=== PATIENT | male | born 1965 | race Hispanic/Latino ===

== ENCOUNTER 2024-11-10 15:52 | Observation (INO) ==
[2024-11-10] MEDS: ASPIRIN 81 MG TAB.CHEW PO ONE (16:32)
[2024-11-10] MEDS: NITROGLYCERIN 1 GM OINT...G. TD ONE (16:33)
--- NOTE | 2024-11-10 16:38 | Emergency Department Note ---
HPI - Chest Pain General Chief Complaint: Chest Pain Stated Complaint: CHEST PAIN,SOB Time Seen by Provider: 11/10/24 16:38 Source: patient Mode of arrival: walk-in Limitations: no limitations History of Present Illness HPI narrative: This is a 59 year old male patient that presents to the ER with c/o substenal chest pain that comes and goes. patient denies any SOB, abdominal pain, back pain, fever, chills, numbness, tingling, weakness or N/V/D MD complaint: Reports chest pain Onset (ago): hour(s) (3) Timing of current episode: Reports episodic Onset: Reports during rest Pain location: Reports substernal Pain radiation: Reports none Severity: mild Quality: Reports tightness Relieving factors: Reports nothing Exacerbating factors: Reports nothing Treatment prior to arrival: Reports aspirin (81mg [employer]IE[employer] to ER) Risk Factors Coronary artery disease risk factors: Reports hypertension Thoracic aortic dissection risk factors: Reports none Pulmonary embolism risk factors: Reports none Related Data Allergies Allergy/AdvReac Type Severity Reaction Status Date / Time Penicillins Allergy Verified 11/10/24 16:27 Review of Systems Status of ROS 10 or more systems reviewed and unremark able except as noted in history and below Constitutional Denies: fever, chills, change in weight, fatigue or malaise Eyes Denies: change in vision, blurry vision, blind spots or light sensitivity Ears, nose, mouth, and throat Denies: throat pain, neck pain, throat swelling, difficulty swallowing or hoarseness Cardiovascular Reports: chest pain; Denies: palpitations, edema, swelling of feet/ankles or lightheadedness Respiratory Denies: shortness of breath, cough, wheezing, stridor, pain on inspiration or change in phlegm color Gastrointestinal Denies: abdominal pain, nausea, vomiting, coffee grounds in vomit, heartburn or diarrhea Genitourinary Denies: painful urination, urinary frequency, urinary urgency, blood in urine or genital pain Musculoskeletal Denies: back pain, neck pain, extremity pain, extremity swelling, joint pain or limited range of motion Integumentary/Breast Denies: rash, itching, redness, skin pain, skin tenderness or skin swelling Neurological Denies: headache, numbness in extremities, weakness in extrem ities, lack of coordination or dizziness Psychiatric Denies: anxiety, mood swings, panic attacks, change in sleep pattern or hopelessness Endocrine Denies: excessive urination, excessive thirst, fatigue, cold intolerance or excessive sweating Hematologic/Lymphatic Denies: easy bruising, easy bleeding or enlarged lymph nodes Allergic/Immunologic Denies: hives, throat swelling, tongue swelling or facial swelling Exam Constitutional: normal general appearance and no apparent distress Vital Signs - 24 hr 11/10/24 15:55 11/10/24 15:55 11/10/24 16:33 Temperature 98.8 F Pulse Rate 77 Respiratory Rate 16 Blood Pressure 128/72 133/71 Pulse Oximetry 99 99 Oxygen Delivery Me thod Room Air Room Air HENMT: normocephalic, head/scalp atraumatic, hearing grossly normal bilaterally, external ears normal, nasal mucous membranes normal, external nose normal, oral mucous membranes normal and oropharynx normal Eyes: PERRL, EOMs intact bilaterally, conjunctivae normal and no scleral icterus Neck/C-Spine: visual inspection normal and trachea midline Lymph: no lymphadenopathy noted Chest: inspection of chest normal Respiratory: breath sounds equal bilaterally, normal respiratory effort, clear to auscultation bilaterally, no wheezes, no rales, no retractions, no use of accessory muscles and chest percussion normal Cardiovascular: normal heart rate noted, regular rhythm noted, no gallop, no rub, no murmur, no JVD, no clicks, peripheral pulses 2+ throughout and no additional abnormal heart sounds Gastrointestinal: abdomen normal to inspection, abdomen soft to palpation, nontender to palpation, nontender to percussion, nondistended, normoactive bowel sounds, no hepatosplenomegaly, no masses, no pulsatile mass, no ascites and no hernia Genitourinary: no CVA tenderness Back/Pelvis: spine normal to inspection Extremities: normal to inspection, normal to palpation, no tenderness, full ROM, no joint enlargement and no deformity Neurology: no movement abnormality noted, no focal motor deficit noted, no sensory deficits noted, gait normal, speech normal, coordination normal, no pronator drift noted, no fasciculations noted and GCS normal Psychiatry: mental status grossly normal, oriented x3, thought process normal, cooperative and affect normal Skin: skin color normal Course Course Hospital Course: 1706: due to patients ongoing chest pain, risk factors and heart score of 7 will admit patient to the hospital for further evaluation and treatment, VSS, no s/s of acute distress noted Vital Signs Vital signs: Vital Signs Temperature 98.8 F 11/10/24 15:55 Pulse Rate 77 11/10/24 15:55 Respiratory Rate 16 11/10/24 15:55 Blood Pressure 128/72 11/10/24 15:55 Pulse Oximetry 99 11/10/24 15:55 Oxygen Delivery Method Room Air 11/10/24 15:55 Temperature 98.8 F 11/10/24 15:55 Pulse Rate 77 11/10/24 15:55 Respiratory Rate 16 11/10/24 15:55 Blood Pressure 133/71 11/10/24 16:33 Pulse Oximetry 99 11/10/24 15:55 Oxygen Delivery Method Room Air 11/10/24 15:55 MDM - Chest Pain Differential Diagnosis Differential diagnosis: Likely stable angina Medical Records Data Attestation: I reviewed the patient's medical records. Lab Data Attestation: I reviewed the patient's lab results. Labs: Lab Results 11/10/24 Range/Units 16:10 WBC 5.6 (3.7-9.6) K/uL RBC 4.1 L (4.40-5.80) M/uL Hgb 13.4 L (14.0-17.4) gm/dL Hct 38.9 L (41.3-50.1) % MCV 95.7 (81.9-96.5) fl MCH 32.9 (27.6-33.7) pg MCHC 34.4 (33.0-35.7) g/dl RDW 13.9 (11.0-14.8) % Plt Count 97 L (142-355) K/uL MPV 10.3 (6.0-10.4) fl Gran % 51.3 (49.1-73.1) % Lymph % (Auto) 30.2 (17.6-39.05) % [place] % (Auto) 9.7 (4.5-10.7) % Eos % (Auto) 8.1 H (0.0-4.0) % Baso % (Auto) 0.7 (0.0-1.3) Lymph # (Auto) 1.7 (0.8-2.9) [place] # (Auto) 0.5 (0.2-0.8) Eos # (Auto) 0.5 H (0.0-0.3) Baso # (Auto) 0.0 (0.0-0.1) Absolute Gran (auto) 2.9 (2.0-6.2) Sodium 137 (136-145) mmol/L Potassium 3.6 (3.6-5.2) mmol/L Chloride 100.0 (98-107) mmol/L Carbon Dioxide 32 (21-32) mmol/L Anion Gap 5.0 (4-14) mEq/L BUN 7 (7-18) mg/dL Creatinine 0.8 (0.6-1.3) mg/dL Estimated GFR 102.0 (>59.9) Glucose 76 (70-110) mg/dL Calcium 8.7 (8.5-10.1) mg/dL Total Bilirubin 1.25 H (0.0-1.0) mg/dL AST 41 H (15-37) U/L ALT 48 (30-65) U/L Alkaline Phosphatase 124 (50-136) U/L Troponin I High Sens 6.40 (4.0-60.4) ng/L Total Protein 7.1 (6.4-8.2) g/dL Albumin 3.4 (3.4-5.0) g/dL Imaging Data Imaging ordered: Chest x-ray My impression: CXR: negative ECG Data Attestation: I have reviewed the pertinent ECG results. Discharge Plan Discharge Patient Disposition: Admitted As Observation Condition: Stable Chief Complaint: Chest Pain Clinical Impression: Chest pain Print Language: Finnish Referrals: YANNA SWANSON [Primary Care Provider] - Time of Disposition: 17:12 [facility] Medical History (Updated 11/10/24 @ 16:29 by Apple Giordano RN) HTN (hypertension) GERD (gastroesophageal reflux disease) Surgical History (Updated 11/10/24 @ 16:29 by Apple Giordano RN) H/O left inguinal hernia repair Social History Smoking status: current some day smoker
[2024-11-10 16:53] LABS: Basophils%(Percent) Auto 0.7 (0.0-1.3); Eosinophils#(Absolute)Auto 0.5 (0.0-0.3); Eosinophils%(Percent) Auto 8.1 % (0.0-4.0); Granulocytes % - Auto 51.3 % (49.1-73.1); Granulocytes#(Absolute)- Auto 2.9 (2.0-6.2); Hematocrit 38.9 % (41.3-50.1); Mean Corpuscular Volume 95.7 fl (81.9-96.5); Monocytes #(Absolute)- Auto 0.5 (0.2-0.8); Monocytes %(Percent)- Auto 9.7 % (4.5-10.7); Platelet Count 97 K/uL (142-355); White Blood Count 5.6 K/uL (3.7-9.6)
[2024-11-10 16:58] LABS: Potassium 3.6 mmol/L (3.6-5.2)
[2024-11-10] MEDS ORDERED: MORPHINE SULFATE 2 MG/ML CARTRIDGE IV PRN (18:22)
[2024-11-10] MEDS: NITROGLYCERIN 1 GM OINT...G. TD SCH (22:36)
[2024-11-11 04:42] LABS: Eosinophils#(Absolute)Auto 0.6 (0.0-0.3); Eosinophils%(Percent) Auto 12.3 % (0.0-4.0); Granulocytes#(Absolute)- Auto 1.9 (2.0-6.2); Monocytes #(Absolute)- Auto 0.4 (0.2-0.8); White Blood Count 4.6 K/uL (3.7-9.6)
[2024-11-11 04:44] LABS: Basophils%(Percent) Auto 0.9 (0.0-1.3); Granulocytes % - Auto 42.3 % (49.1-73.1); Hematocrit 36.8 % (41.3-50.1); Mean Corpuscular Volume 98.2 fl (81.9-96.5); Monocytes %(Percent)- Auto 9.2 % (4.5-10.7); Platelet Count 61 K/uL (142-355)
[2024-11-11 05:02] LABS: Potassium 3.4 mmol/L (3.6-5.2)
[2024-11-11 05:10] LABS: INR 2.18
[2024-11-11 08:23] VITALS: RESP 19
[2024-11-11] MEDS: ASPIRIN 81 MG TAB.CHEW PO SCH (10:11)
--- NOTE | 2024-11-11 10:52 | Short Stay Summary ---
H&P: HPI History of Present Illness Chief complaint: Chest Pain Narrative: This is a 59 year old male patient that presents to the ER with c/o substernal chest pain that comes and goes. Patient denies any SOB, abdominal pain, back pain, fever, chills, numbness, tingling, weakness or N/V/D. Admitted patient to med/surg floor for further observation and treatment. Review of Systems Status of ROS 10 or more systems reviewed and unremark able except as noted in history and below Constitutional Denies: fever, chills, change in weight, fatigue or malaise Eyes Denies: change in vision, blurry vision, blind spots or light sensitivity Ears, nose, mouth, and throat Denies: throat pain, neck pain, throat swelling, difficulty swallowing or hoarseness Cardiovascular Reports: chest pain; Denies: palpitations, edema, swelling of feet/ankles, lightheadedness or shortness of breath with exertion Respiratory Denies: shortness of breath, cough, wheezing, stridor, pain on inspiration or change in phlegm color Gastrointestinal Denies: abdominal pain, nausea, vomiting, coffee grounds in vomit, heartburn, diarrhea or difficulty swallowing Genitourinary Denies: painful urination, urinary frequency, urinary urgency, blood in urine or genital pain Musculoskeletal Denies: back pain, neck pain, extremity pain, extremity swelling, joint pain or limited range of motion Integumentary/Breast Denies: rash, itching, redness, skin pain, skin tenderness or skin swelling Neurological Denies: headache, numbness in extremities, weakness in extremities, lack of coordination or dizziness Psychiatric Denies: anxiety, mood swings, panic attacks, change in sleep pattern or hopelessness Endocrine Denies: excessive urination, excessive thirst, fatigue, cold intolerance or excessive sweating Hematologic/Lymphatic Denies: easy bruising, easy bleeding or enlarged lymph nodes Allergic/Immunologic Denies: hives, throat swelling, tongue swelling, facial swelling or wheezing PFSH PFS Medical History Hyperbilirubinemia CAD (coronary artery disease) HTN (hypertension) GERD (gastroesophageal reflux disease) Surgical History H/O left inguinal hernia repair Social History Smoking status: current some day smoker Problems where you live: no known problems Highest level of school completed/degree received: high school Meds Home Medications and Allergies Home Medications Medication Instructions Recorded Confirmed Type aspirin 81 mg tablet,delayed 81 mg PO DAILY cad #30 tabs 11/11/24 Rx release famotidine 40 mg tablet (Pepcid) 40 mg PO BID gerd/etoh gastritis 11/11/24 Rx #60 tabs lisinopril 2.5 mg tablet 2.5 mg PO DAILY htn #30 tabs 11/11/24 Rx metoprolol tartrate 25 mg tablet 25 mg PO DAILY htn #30 tabs 11/11/24 Rx Allergies Allergy/AdvReac Type Severity Reaction Status Date / Time Penicillins Allergy Verified 11/10/24 18:26 Exam Exam: Patient resting in jimenez's position with family member at bedside upon entering room for exam. Constitutional: normal general appearance, no apparent distress, average body habitus, no limitations and alert Vital Signs - 24 hr 11/10/24 15:55 11/10/24 15:55 11/10/24 16:30 Temperature 98.8 F Pulse Rate 77 75 Pulse Rate [Left B rachial] Pulse Rate [Right Brachial] Respiratory Rate 16 15 Blood Pressure 128/72 133/71 Blood Pressure [Le ft Arm] Blood Pressure [Ri ght Arm] Pulse Oximetry 99 99 98 Oxygen Delivery Me thod Room Air Room Air Room Air 11/10/24 16:33 11/10/24 17:30 11/10/24 18:00 Temperature Pulse Rate 69 70 Pulse Rate [Left B rachial] Pulse Rate [Right Brachial] Respiratory Rate 14 15 Blood Pressure 133/71 125/74 129/74 Blood Pressure [Le ft Arm] Blood Pressure [Ri ght Arm] Pulse Oximetry 97 97 Oxygen Delivery Mt thod Room Air Room Air 11/10/24 18:05 11/10/24 18:07 11/10/24 18:22 Temperature 98.8 F 98.4 F Pulse Rate 70 Pulse Rate [Left B rachial] Pulse Rate [Right Brachial] 63 Respiratory Rate 15 14 Blood Pressure 125/74 125/74 Blood Pressure [Le ft Arm] Blood Pressure [Ri ght Arm] 138/72 Pulse Oximetry 97 99 Oxygen Delivery Mt thod Room Air 11/10/24 18:22 11/10/24 20:00 11/11/24 00:00 Temperature 98.4 F 98.4 F 97.4 F L Pulse Rate Pulse Rate [Left B rachial] 63 70 65 Pulse Rate [Right Brachial] Respiratory Rate 14 19 19 Blood Pressure Blood Pressure [Le ft Arm] 138/72 107/56 114/66 Blood Pressure [Ri ght Arm] Pulse Oximetry 99 98 98 Oxygen Delivery Mt thod Room Air Room Air Room Air 11/11/24 01:33 11/11/24 04:00 11/11/24 08:00 Temperature 98 F 98.6 F Pulse Rate Pulse Rate [Left B rachial] 63 60 Pulse Rate [Right Brachial] Respiratory Rate 18 19 Blood Pressure 114/66 Blood Pressure [Le ft Arm] 114/60 133/76 Blood Pressure [Ri ght Arm] Pulse Oximetry 96 99 Oxygen Delivery Mt thod Room Air HENMT: normocephalic, head/scalp atraumatic, hearing grossly normal bilaterally, external ears normal, nasal mucous membranes normal, external nose normal, oral mucous membranes normal and oropharynx normal Eyes: PERRL, EOMs intact bilaterally, conjunctivae normal and no scleral icterus Neck/C-Spine: visual inspection normal and trachea midline Lymph: no lymphadenopathy noted Chest: inspection of chest normal Respiratory: breath sounds equal bilaterally, normal respiratory effort, clear to auscultation bilaterally, no wheezes, no rales, no retractions, no use of accessory muscles and chest percussion normal Cardiovascular: normal heart rate noted, regular rhythm noted, no gallop, no rub, no murmur, no JVD, no clicks, peripheral pulses 2+ throughout and no additional abnormal heart sounds Gastrointestinal: abdomen normal to inspection, abdomen soft to palpation, nontender to palpation, nontender to percussion, nondistended, normoactive bowel sounds, no hepatosplenomegaly, no masses, no pulsatile mass, no ascites and no hernia Genitourinary: no CVA tenderness Back/Pelvis: spine normal to inspection Extremities: normal to inspection, normal to palpation, no tenderness, full ROM, no joint enlargement and no deformity Neurology: no movement abnormality noted, no focal motor deficit noted, no sensory deficits noted, gait normal, speech normal, coordination normal, no pronator drift noted, no fasciculations noted and GCS normal Psychiatry: mental status grossly normal, oriented x3, thought process normal, cooperative and affect normal Skin: skin color normal Assessment and Plan Assessment and Plan (1) Chest pain: Qualifiers: Chest pain type: unspecified Qualified Code(s): R07.9 - Chest pain, unspecified Code(s): R07.9 - Chest pain, unspecified (2) Alcoholic gastritis without bleeding: Qualifiers: Chronicity: acute Qualified Code(s): K29.20 - Alcoholic gastritis without bleeding Code(s): K29.20 - Alcoholic gastritis without bleeding (3) Hyperbilirubinemia: Code(s): E80.6 - Other disorders of bilirubin metabolism (4) HTN (hypertension): Qualifiers: Hypertension type: primary hypertension Qualified Code(s): I10 - Essential (primary) hypertension Code(s): I10 - Essential (primary) hypertension (5) GERD (gastroesophageal reflux disease): Qualifiers: Esophagitis presence: without esophagitis Qualified Code(s): K21.9 - Gastro-esophageal reflux disease without esophagitis Code(s): K21.9 - Gastro-esophageal reflux disease without esophagitis (6) SOB (shortness of breath): Code(s): R06.02 - Shortness of breath (7) Headache: Qualifiers: Headache chronicity pattern: episodic headache Headache type: unspecified Intractability: intractable Qualified Code(s): R51.9 - Headache, unspecified Code(s): R51.9 - Headache, unspecified (8) General weakness: Code(s): R53.1 - Weakness (9) Hypoalbuminemia: Code(s): E88.09 - Other disorders of plasma-protein metabolism, not elsewhere classified (10) Hypoproteinemia: Code(s): E77.8 - Other disorders of glycoprotein metabolism (11) Hypokalemia: Code(s): E87.6 - Hypokalemia (12) Hyponatremia: Code(s): E87.1 - Hypo-osmolality and hyponatremia (13) CAD (coronary artery disease): Qualifiers: Associated angina: with unstable angina Coronary Disease-Associated Artery/Lesion type: unspecified vessel or lesion type [place] vs. transplanted heart: unspecified whether [place] or transplanted heart Qualified Code(s): I25.110 - Atherosclerotic heart disease of [place] coronary artery with unstable angina pectoris Code(s): I25.10 - Atherosclerotic heart disease of [place] coronary artery without angina pectoris (14) Encounter for alcohol abuse counseling and surveillance: Code(s): Z71.41 - Alcohol abuse counseling and surveillance of alcoholic Plan Aspirin 324 mg PO DAILY Nitroglycerin 1 gm TD 0500, 2300 Potassium Chloride 40 meq PO ONCE Morphine Sulfate 2 mg IV Q4H PRN Discharge home for self care Results Labs Labs: CBC WBC 4.6 K/uL (3.7-9.6) 11/11/24 04:30 RBC 3.8 M/uL (4.40-5.80) L 11/11/24 04:30 Hgb 12.5 gm/dL (14.0-17.4) L 11/11/24 04:30 Hct 36.8 % (41.3-50.1) L 11/11/24 04:30 MCV 98.2 fl (81.9-96.5) H 11/11/24 04:30 MCH 33.3 pg (27.6-33.7) 11/11/24 04:30 MCHC 33.9 g/dl (33.0-35.7) 11/11/24 04:30 RDW 14.2 % (11.0-14.8) 11/11/24 04:30 Plt Count 61 K/uL (142-355) L 11/11/24 04:30 MPV 10.7 fl (6.0-10.4) H 11/11/24 04:30 Gran % 42.3 % (49.1-73.1) L 11/11/24 04:30 Lymph % (Auto) 35.3 % (17.6-39.05) 11/11/24 04:30 [place] % (Auto) 9.2 % (4.5-10.7) 11/11/24 04:30 Eos % (Auto) 12.3 % (0.0-4.0) H 11/11/24 04:30 Baso % (Auto) 0.9 (0.0-1.3) 11/11/24 04:30 Lymph # (Auto) 1.6 (0.8-2.9) 11/11/24 04:30 [place] # (Auto) 0.4 (0.2-0.8) 11/11/24 04:30 Eos # (Auto) 0.6 (0.0-0.3) H 11/11/24 04:30 Baso # (Auto) 0.0 (0.0-0.1) 11/11/24 04:30 Absolute Gran (auto) 1.9 (2.0-6.2) L 11/11/24 04:30 BMP Sodium 135 mmol/L (136-145) L 11/11/24 04:30 Potassium 3.4 mmol/L (3.6-5.2) L 11/11/24 04:30 Chloride 100.0 mmol/L (98-107) 11/11/24 04:30 Carbon Dioxide 28 mmol/L (21-32) 11/11/24 04:30 Anion Gap 7.0 mEq/L (4-14) 11/11/24 04:30 BUN 8 mg/dL (7-18) 11/11/24 04:30 Creatinine 0.8 mg/dL (0.6-1.3) 11/11/24 04:30 Estimated GFR 102.0 (>59.9) 11/11/24 04:30 Glucose 115 mg/dL (70-110) H 11/11/24 04:30 Calcium 8.4 mg/dL (8.5-10.1) L 11/11/24 04:30 Total Bilirubin 1.40 mg/dL (0.0-1.0) H 11/11/24 04:30 AST 36 U/L (15-37) 11/11/24 04:30 ALT 41 U/L (30-65) 11/11/24 04:30 Alkaline Phosphatase 106 U/L (50-136) 11/11/24 04:30 Total Protein 6.3 g/dL (6.4-8.2) L 11/11/24 04:30 Albumin 3.0 g/dL (3.4-5.0) L 11/11/24 04:30 Cardiac Enzymes Troponin I High Sens 5.40 ng/L (4.0-60.4) 11/11/24 04:30 Liver Function Total Bilirubin 1.40 mg/dL (0.0-1.0) H 11/11/24 04:30 AST 36 U/L (15-37) 11/11/24 04:30 ALT 41 U/L (30-65) 11/11/24 04:30 Alkaline Phosphatase 106 U/L (50-136) 11/11/24 04:30 Total Protein 6.3 g/dL (6.4-8.2) L 11/11/24 04:30 Albumin 3.0 g/dL (3.4-5.0) L 11/11/24 04:30 Imaging Imaging ordered: Chest x-ray Radiologist's impression: XR CHEST 1V Date of Service: 11/10/24 HISTORY: painpain; COMPARISON: None FINDINGS: The cardiomediastinal silhouette is normal in size. No acute airspace disease. No pneumothorax or effusion. No acute osseous abnormality. IMPRESSION: No acute cardiopulmonary disease. DS: Providers Provider Date of admission: 11/10/24 17:15 Primary care physician: YANNA SWANSON Admitting clinician: Sarina Hancock Attending physician on admission: Savannah Moreno Attending physician on discharge: Savannah Moreno Discharging clinician: Savannah Moreno Anticipated date of discharge: 11/11/24 DS: Summary Hospital Course Hospital Course: This is a 59 year old male patient that presents to the ER with c/o substernal chest pain that comes and goes. Patient denies any SOB, abdominal pain, back pain, fever, chills, numbness, tingling, weakness or N/V/D. Admitted patient to med/surg floor for further observation and treatment. Day one of hospital stay, patients reports no chest pain this a.m. Cardiac enzyme levels were within normal limits. Electrolytes to be replaced via dietary means. Patient has a history of Myocardial Infarction. Nuclear Stress Test to be performed as an outpatient and Echocardiogram to recommended for outpatient. Provider recommends patient follow up with current Sound Recording Technician as soon possible. Post hospital follow up appointment with PCP within 5-7 day so of discharge. Patient is to report to notify PCP or return to ED if symptoms return or worsen. Status at Discharge Overall status at discharge: patient is back to baseline Time Spent with Patient Time attestation: Total time spent providing and/or coordinating discharge services: Time spent: greater than 30 minutes Discharge Plan Discharge Disposition: Home, Self-Care Condition: Improved Discharge Medications: New aspirin 81 mg tablet,delayed release (DR/EC) 81 mg PO DAILY Qty: 30 0RF lisinopril 2.5 mg tablet 2.5 mg PO DAILY Qty: 30 0RF metoprolol tartrate 25 mg tablet 25 mg PO DAILY Qty: 30 0RF famotidine [Pepcid] 40 mg tablet 40 mg PO BID Qty: 60 0RF Discharge Orders: Discharge Order (Routine); Ordered 11/11/24 Ordered By: aSvannah Moreno Activity: increase activity as tolerated Diet: low fat, low cholesterol Interventions: Discharge Assessment Last Done: 11/11/24 13:04 MED/SURG & ICU Observation Charge Sheet Last Done: 11/11/24 13:07 Patient Instructions: Angina (DC) Activity Restrictions/Additional Instructions: alcohol cessation education and patient states he will stop return to work on Thursday or after follow up with his PCP [facility] discussed with patient and papers given so he can afford to get medications and see the specialist Nuclear stress and ECHO recommended after history of young OR (2001) and Cocaine abuse (stopped 2005) increase water in his diet and avoid ETOH, Spicy foods, caffeine, and citrus drinks return to the ER [email or web address] if chest pain recurs or any concerns or change in symptoms Forms: Portal/Health Info Access Inst Follow-Ups: YANNA SWANSON [Primary Care Provider] - Discharge Date/Time: 11/11/24 14:03
[2024-11-11] MEDS: POTASSIUM CHLORIDE 20 MEQ TAB.ER.PRT PO ONE (11:39)
[2024-11-11 12:43] VITALS: BP 132/86; PULSE 64; TEMP 97.9
[2024-11-11] MEDS ORDERED: NITROGLYCERIN 1 GM OINT...G. TD SCH (23:00)
== END 2024-11-11 14:03 | disposition home or self-care (01) ==
LOC: MS 15:52 → ED 15:52 → MS 18:05
PROVIDERS: ADMIT Family Medicine; ATTEND Family Medicine